=== PATIENT | male | born 1995 | race Hispanic/Latino ===

== ENCOUNTER 2018-09-27 21:24 | Emergency (ER) | payer OTHER, SELFPAY ==
[2018-09-27 22:02] LABS: #Eosinphils 0.1 thou/uL (0.0-0.7); #Neutrophils 9.4 thou/uL (1.40-6.50); %Basophils 0.3 % (0.0-1.0); %Eosinophils 1.1 % (0.0-10.0); %Lymphocytes 22.2 % (21.0-51.0); %Monocytes 7.6 % (0.0-10.0); %Neutrophils 68.8 % (42.0-75.0); Hemoglobin 16.6 g/dL (14.0-18.0); Mean Corpuscular HGB CONC 35.4 g/dL (32.0-36.0); Mean Corpuscular Hemoglobin 32.1 pg (27.0-31.0); Mean Corpuscular Volume 90.6 fL (78.0-98.0); Platelet Count 275 thou/uL (130-400); RBC Distribution Width 11.3 % (11.5-14.5); Red Blood Cell (RBC) Count 5.17 mill/uL (4.70-6.10); White Blood Cell (WBC) Count 13.6 thou/uL (4.8-10.8)
--- NOTE | 2018-09-27 22:08 | RAD ---
Portable frontal chest radiograph: 09/27/2018 COMPARISON: None HISTORY: Chest pain FINDINGS: Lungs are clear. Heart and mediastinal contours appear within normal limits. IMPRESSION: No acute findings.
[2018-09-27 22:20] LABS: ALT (SGPT) 26 U/L (8-55); AST (SGOT) 18 U/L (5-34); Albumin 4.5 g/dL (3.5-5.0); Alkaline Phosphatase 112 U/L (40-150); Anion Gap 15 mmol/L (10-20); BUN (Urea Nitrogen) 17 mg/dL (8.9-20.6); Bilirubin, Total 0.5 mg/dL (0.2-1.2); Calc. Creatinine Clearance 0 mL/min (70-130); Calcium 9.8 mg/dL (7.8-10.44); Carbon Dioxide 24 mmol/L (22-29); Chloride 105 mmol/L (98-107); Estimated GFR-MDRD Greater than 90; Globulin 3.3 g/dL (2.4-3.5); Glucose 101 mg/dL (70-105); Potassium 3.6 mmol/L (3.5-5.1); Protein, Total 7.8 g/dL (6.0-8.3); Sodium 140 mmol/L (136-145)
[2018-09-27] MEDS ORDERED: Mag-Al 1200 mg/1200 mg/30 ML UDCUP ONE (22:45)
[2018-09-27] MEDS ORDERED: Ketorolac Tromethamine 60 MG/2 ML VIAL ONE (22:45)
[2018-09-27] MEDS ORDERED: Lidocaine Viscous Sol 2% 15 ml UD Cup ONE (22:45)
--- NOTE | 2018-10-01 13:41 | EKG ---
Test Reason : Blood Pressure : / mmHG Vent. Rate : 094 BPM Atrial Rate : 094 BPM P-R Int : 136 ms QRS Dur : 088 ms QT Int : 324 ms P-R-T Axes : 044 041 034 degrees QTc Int : 405 ms Normal sinus rhythm Normal ECG Confirmed by JIM PANTOJA, MARISABEL ([id number]), film and video editor DIPIKA MONTANO ([id number]) on 10/01/2018 1:40:41 PM Referred By: Confirmed By:MARISABEL FERNANDEZ MD
== END 2018-09-27 23:25 | disposition home or self-care (01) ==
LOC: ERS 21:24
DX: R07.89 Other chest pain (principal); K21.9 Gastro-esophageal reflux disease without esophagitis; I10 Essential (primary) hypertension; F17.210 Nicotine dependence, cigarettes, uncomplicated
CPT/HCPCS: 36415; 71045; 80053; 84484; 85025; 93005; 96372; J1885

== ENCOUNTER 2018-10-20 13:12 | Emergency (ER) | payer OTHER ==
[~2018-10-20 13:12] MED LIST: ISOVUE-370 76%-LOCM 1 ML ONE
[2018-10-20 13:53] LABS: Bilirubin Negative (Negative); Blood, Urine Negative (Negative); Clarity Clear (Clear); Glucose, Urine (Dipstick) Normal (Negative); Leukocyte Negative Leu/uL (Negative); Nitrite Negative (Negative); Protein, Urine (Dipstick) 20 mg/dL (Neg-Trace)
[2018-10-20 14:10] LABS: #Eosinphils 0.1 thou/uL (0.0-0.7); #Lymphocytes 2.2 thou/uL (1.20-3.40); #Monocytes 1.1 thou/uL (0.11-0.59); #Neutrophils 8.6 thou/uL (1.40-6.50); %Basophils 0.3 % (0.0-1.0); %Lymphocytes 18.2 % (21.0-51.0); %Monocytes 8.9 % (0.0-10.0); %Neutrophils 71.7 % (42.0-75.0); Hemoglobin 15.8 g/dL (14.0-18.0); Mean Corpuscular HGB CONC 33.8 g/dL (32.0-36.0); Mean Corpuscular Hemoglobin 30.5 pg (27.0-31.0); Mean Corpuscular Volume 90.2 fL (78.0-98.0); Mean Platelet Volume 7.5 fL (7.4-10.4); Platelet Count 377 thou/uL (130-400); RBC Distribution Width 10.9 % (11.5-14.5)
[2018-10-20 14:36] LABS: ALT (SGPT) 33 U/L (8-55); AST (SGOT) 22 U/L (5-34); Albumin 4.6 g/dL (3.5-5.0); Alkaline Phosphatase 137 U/L (40-150); Anion Gap 14 mmol/L (10-20); BUN (Urea Nitrogen) 10 mg/dL (8.9-20.6); Bilirubin, Total 0.9 mg/dL (0.2-1.2); Calc. Creatinine Clearance 0 mL/min (70-130); Calcium 10.5 mg/dL (7.8-10.44); Carbon Dioxide 28 mmol/L (22-29); Chloride 99 mmol/L (98-107); Estimated GFR-MDRD Greater than 90; Glucose 98 mg/dL (70-105); Lipase 19 U/L (8-78); Potassium 3.9 mmol/L (3.5-5.1); Protein, Total 8.6 g/dL (6.0-8.3); Sodium 137 mmol/L (136-145)
[2018-10-20] MEDS ORDERED: Ketorolac Tromethamine 30 MG/ML VIAL ONE (15:00)
--- NOTE | 2018-10-20 15:00 | RAD ---
TWO VIEW CHEST: COMPARISON: Single view chest 09/27/2018. INDICATION: Thoracic back and chest pain. FINDINGS: There is no free air. Lungs are clear. Cardiac silhouette is normal in size. Osseous structures ar e intact. IMPRESSION: No acute abnormality. POS: [facility]
--- NOTE | 2018-10-20 15:46 | CT ---
ABDOMEN CT WITH CONTRAST PELVIC CT WITH CONTRAST: Date: 10/20/18 HISTORY: Hematuria, starting 2 days ago. Lower abdominal pain. FINDINGS: ABDOMEN CT: Dependent atelectatic changes. Normal heart size. No significant pericardial fluid. Visualized aorta has a normal caliber. No periaortic fat stranding. Portal vein is patent. There is a markedly distended gallbladder with mild hyperemia. Possible puncta te 1.0 mm calculus in the neck of the gallbladder. Liver, spleen, pancreas, and adrenal glands have appropriate attenuation and enhancement. No gastrohepatic, retrocrural, or periportal lymphadenopathy. Symmetric enhancement of the kidneys. Bilaterally, no obstructive uropathy. No mesenteric mass, free air, or free fluid. Limited evaluation of the alimentary canal by the lack of oral contrast. No evidence of bowel obstruc tion. Ileocecal junction is unremarkable. There are slightly enlarged lymph nodes in the right lower quadrant mesentery. Enlarged loss control representative lymph node measures 1.5 cm craniocaudal dimension. Normal caliber appendix. Scattered fecal material in a nondistended, nondilated colon. Occasional div erticulum. No diverticulitis. CT PELVIS: Prostate gland is unremarkable. No pelvic mass, lymphadenopathy, free air, or free fluid. Unremarkable urinary bladder. OSSEOUS STRUCTURES: There are no lytic or blastic lesions in the osseous structures. IMPRESSION: 1. Markedly distended gallbladder with mild gallbladder enhancement and trace amount of pericholecys tic fluid. There is a punctate 1.0 mm calculus in the neck of the gallbladder. Right upper quadrant u ltrasound is recommended. 2. Occasional diverticulum. No diverticulitis. 3. Normal caliber appendix. 4. Enlarged lymph nodes in the right lower quadrant mesentery. Correlate for mesenteric lymphadeniti s. POS: [facility]
--- NOTE | 2018-10-20 16:02 | ULT ---
GALLBLADDER ULTRASOUND: Date: 10/20/18 HISTORY: Abdominal pain. Abnormal CT 10/20/2018. FINDINGS: Pancreas obscured by bowel gas. Limited evaluation of the liver. No obvious masses. Right hepatic lobe measures 16.2 cm. Gallbladder wall thickness is 0.3 cm. Gallbladder is distended and there appears to be echogenic mate rial within the fundus of the gallbladder. Possible sludge, or debris, is suspected. There is no sign ificant pericholecystic fluid. Negative Mohamud's sign. Common bile duct diameter is 0.4 cm. Portal vein is patent with appropriate direction of flow. Right kidney has a normal cortical echotexture. No hydronephrosis. Right kidney measures 10.4 cm in m aximum dimension. IMPRESSION: Distended gallbladder with what appears to be echogenic debris in the lumen of the gallbladder. Findi ngs may represent sludge. Gallbladder wall thickness is at the upper limits of normal. There is no pe richolecystic fluid and there is a negative Mohamud's sign. However, given the overall degree of promi nence of the gallbladder best demonstrated on CT, HIDA scan is recommended. POS: [facility]
== END 2018-10-20 16:41 | disposition home or self-care (01) ==
LOC: ERS 13:12
DX: K80.50 Calculus of bile duct without cholangitis or cholecystitis without obstruction (principal); I10 Essential (primary) hypertension; Z87.891 Personal history of nicotine dependence
CPT/HCPCS: 36415; 71046; 74177; 76705; 80053; 81003; 83690; 85025; 87086; 96374; J1885

== ENCOUNTER 2018-11-17 08:32 | Outpatient (CLI) | payer OTHER ==
--- NOTE | 2018-11-17 11:20 | NM ---
Nuclear medicine hepatobiliary scan: HISTORY: Right upper quadrant pain, distended gallbladder on ultrasound FINDINGS: Patient was injected with 5.2 mCi technetium 99m mebrofenin intravenously. There is prompt uptake of the tracer by the liver with excretion into the biliary tree and emptying into the bowel. Delayed images at 75 minutes demonstrates very little residual tracer within the liver and no tracer within t he gallbladder. The patient was not able to receive morphine IV because he did not have a ride home. IMPRESSION: Nonvisualization of the gallbladder. This is certainly concerning for cholecystitis.
== END 2018-11-17 08:33 | disposition home or self-care (01) ==
LOC: NM 08:32
PROVIDERS: ATTEND Surgery
DX: R10.11 Right upper quadrant pain (principal)
CPT/HCPCS: 78227; A9537

== ENCOUNTER 2018-11-27 21:51 | Inpatient (IN) | payer OTHER ==
--- NOTE | 2018-11-27 22:27 | RAD ---
EXAM: Single view of the chest HISTORY: Chest pain COMPARISON: 09/27/2018 FINDINGS: Single view of the chest shows a normal sized cardiomediastinal silhouette. There is no nish dence of consolidation, mass, or pleural effusion. The bones are unremarkable. IMPRESSION: No evidence of acute cardiopulmonary disease
[2018-11-27 22:49] LABS: #Lymphocytes 1.2 thou/uL (1.20-3.40); #Monocytes 0.8 thou/uL (0.11-0.59); #Neutrophils 8.4 thou/uL (1.40-6.50); %Eosinophils 0.4 % (0.0-10.0); %Lymphocytes 11.6 % (21.0-51.0); %Monocytes 7.9 % (0.0-10.0); Hemoglobin 16.1 g/dL (14.0-18.0); Mean Corpuscular HGB CONC 35.2 g/dL (32.0-36.0); Mean Corpuscular Hemoglobin 31.7 pg (27.0-31.0); Mean Platelet Volume 8.2 fL (7.4-10.4); Platelet Count 260 thou/uL (130-400); RBC Distribution Width 11.6 % (11.5-14.5); Red Blood Cell (RBC) Count 5.07 mill/uL (4.70-6.10); White Blood Cell (WBC) Count 10.4 thou/uL (4.8-10.8)
[2018-11-27 22:57] LABS: ALT (SGPT) 192 U/L (8-55); AST (SGOT) 188 U/L (5-34); Albumin 4.6 g/dL (3.5-5.0); Alkaline Phosphatase 133 U/L (40-110); Anion Gap 15 mmol/L (10-20); BUN (Urea Nitrogen) 8 mg/dL (8.9-20.6); Bilirubin, Total 2.2 mg/dL (0.2-1.2); Calc. Creatinine Clearance 0 mL/min (70-130); Calcium 9.4 mg/dL (7.8-10.44); Carbon Dioxide 23 mmol/L (22-29); Chloride 105 mmol/L (98-107); Estimated GFR-MDRD Greater than 90; Globulin 3.1 g/dL (2.4-3.5); Glucose 118 mg/dL (70-105); Lipase 34 U/L (8-78); Potassium 3.5 mmol/L (3.5-5.1); Protein, Total 7.7 g/dL (6.0-8.3); Sodium 139 mmol/L (136-145)
[2018-11-27] MEDS ORDERED: Ketorolac Tromethamine 30 MG/ML VIAL ONE (22:58)
[2018-11-27] MEDS ORDERED: Morphine 4 MG/ML VIAL ONE (22:58)
[2018-11-27 23:11] LABS: Bacteria/HPF None Seen HPF (None Seen); Bilirubin 2+ (Negative); Blood, Urine Negative (Negative); Clarity Clear (Clear); Glucose, Urine (Dipstick) Normal (Negative); Leukocyte Negative Leu/uL (Negative); Mucous/LPF 1+ LPF (<2+); Nitrite Negative (Negative); Protein, Urine (Dipstick) 50 mg/dL (Neg-Trace); RBC/HPF 0-3 HPF (0-3); Squamous Epithelial 0-3 HPF (0-3); Urobilinogen 12 mg/dL (Less than 2); WBC/HPF 0-3 HPF (0-3)
[2018-11-28] MEDS ORDERED: Piperacillin/Tazobactam 3.375 GM VIAL ONE (00:26)
[2018-11-28] MEDS ORDERED: Ondansetron ODT 4 MG TAB SL PRN (03:02)
[2018-11-28] MEDS ORDERED: Ondansetron PF 4 MG/2 ML Vial IVP PRN ×2 (03:02→13:07)
[2018-11-28] MEDS ORDERED: Morphine 2 MG/ML SYRINGE SLOW IVP PRN ×2 (03:03→13:34)
[2018-11-28 03:08] VITALS: BMI 36.2
[2018-11-28] MEDS: Sodium Chloride 0.9% 1,000 ML IV SCH ×2 (03:32→11:22)
[2018-11-28] MEDS: Morphine 4 MG/ML VIAL SLOW IVP PRN ×2 (03:40→08:15)
[2018-11-28] MEDS ORDERED: cefOXitin 2 GM in Sodium Chloride 0.9% 100 ML IVPB SCH (08:30)
--- NOTE | 2018-11-28 09:14 | ULT ---
PRELIMINARY REPORT/[facility]/EMERGENCY AFTER HOURS PROCEDURE: PROCEDURE INFORMATION: Exam: US Abdomen Limited, Right Upper Quadrant Exam date and time: 11/28/2018 12:06 AM Clinical history: 23 years old, male; Other: Upper abd pain, HX of gb disease TECHNIQUE: Imaging protocol: Real-time ultrasound of the abdomen with image documentation. Examination was focus ed on the right upper quadrant. COMPARISON: US Gallbladder RUQ 10/20/2018 3:33 PM FINDINGS: Liver: No acute findings. No mass. Gallbladder: Multiple gallstones. Mild gallbladder wall thickening. Common bile duct: Measures 9.5 mm in diameter. Pancreas: Obscured by bowel gas. Right kidney: No acute findings. No mass. No hydronephrosis. IMPRESSION: Cholelithiasis with mild gallbladder wall thickening and positive Mohamud's sign concerning for acute cholecystitis. Common bile duct dilation. Thank you for allowing us to participate in the care of your patient. Dictated and Authenticated by: Rock Song MD 11/28/2018 12:43 AM Central Time ([place] & [place]) FINAL REPORT RIGHT UPPER QUADRANT ULTRASOUND: Date: 11/28/18 COMPARISON: 10/20/18. HISTORY: Evaluate for cholecystitis, right upper quadrant pain. TECHNIQUE: Multiplanar Vega scale sonographic imaging of the right upper quadrant provided. FINDINGS: The pancreas is completely obscured by bowel gas. No focal liver lesion or intrahepatic biliary dilat ation is noted. There are echogenic foci within the gallbladder lumen consistent with gallstones. There is gallbladde r sludge as well. Gallbladder wall is mildly thickened, measuring 4.0 mm in transverse dimension. The common bile duct is dilated, measuring 1.0 cm. The pasteurizing supervisor reports a positive Mohamud's sign. Right kidney measures 10.7 cm in craniocaudal dimension and demonstrates no evidence for stone, hydro nephrosis or mass. IMPRESSION: Cholelithiasis with gallbladder wall thickening and positive Mohamud's sign, consistent with acute cho lecystitis. The common bile duct is dilated, suspicious for possible nonvisualized choledocholithiasi s. Surgical consultation is advised. POS: [facility]
[2018-11-28] MEDS: Piperacillin/Tazobactam 3.375 GM in Sodium Chloride 0.9% 100 ML IVPB SCH ×5 (09:51→23:53)
[2018-11-28] MEDS ORDERED: Midazolam HCl 2 mg/2 ml Vial ONE (10:35)
[2018-11-28] MEDS ORDERED: Fentanyl 100 MCG/2 ML VIAL ONE ×2 (10:35→12:39)
[2018-11-28] MEDS ORDERED: Iothalamate Meglumine 60% 50 ML VIAL FS ONE ×2 (10:46→12:07)
[2018-11-28] MEDS ORDERED: Bupivacaine/Epinephrine 0.25% 30 ML VIAL ONE (10:46)
--- NOTE | 2018-11-28 12:02 | HP ---
CHIEF COMPLAINT: Right upper quadrant abdominal pain. HISTORY OF PRESENT ILLNESS: This is a 23-year-old male with a 1-year history of intermittent epigastric and right upper quadrant pain radiating to back, associated with nausea. He had a worsening episode last night, came to the emergency room, where he was found to have gallstones. PAST MEDICAL HISTORY: Hypertension. PAST SURGICAL HISTORY: He had some kind of mass taken off his neck. MEDICATIONS: Lisinopril 10 daily. ALLERGIES: NO KNOWN DRUG ALLERGIES. SOCIAL HISTORY: He is single. 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 He smokes 1 pack per week good. Occasional alcohol. FAMILY HISTORY: Diabetes and hypertension. PHYSICAL EXAMINATION: VITAL SIGNS: Temperature 98.6, pulse 66, and blood pressure 165/94. GENERAL: He is obese male, in no apparent distress. HEENT: No jaundice. LUNGS: Clear. HEART: Regular rate and rhythm. ABDOMEN: Soft, tender in the right upper quadrant with a positive Mohamud's sign. EXTREMITIES: Unremarkable. LABORATORY DATA: White count 10.4, H and H of 16 and 45, and platelet count 260. Electrolytes are fine. Glucose elevated at 118, T-bili of 2.2, AST of 188, ALT of 192, and alkaline phosphatase 133. IMAGING DATA: Ultrasound shows thickened gallbladder wall, cholelithiasis, and an enlarged common duct at 9.5 mm. ASSESSMENT: Acute cholecystitis with possible choledocholithiasis. PLAN: Laparoscopic cholecystectomy with cholangiogram. CONSENT: I have discussed planned procedure as well as risk of bleeding, infection, injury to bile duct, injury to bowel, need to open, he understands and gives informed consent. Job ID: [id number]
[2018-11-28] MEDS ORDERED: Indomethacin 50 MG SUPP ONE (12:23)
--- NOTE | 2018-11-28 12:26 | RAD ---
EXAM: Cholangiogram in surgery HISTORY: Acute cholecystitis COMPARISON: None FINDINGS: Limited intraoperative fluoroscopic views were taken during a cholangiogram in surgery. There is a contrast-filled structure with multiple filling defects which likely represents the patien t's gallbladder. The common bile duct is enlarged in caliber without filling defect. No leakage from the common bile duct. Contrast is not seen passing into the duodenum. No abnormality of the intrahepatic bile ducts. IMPRESSION: 1. Enlargement of the common bile duct without passage of contrast into the duodenum 2. There appears be contrast backfilling into the gallbladder with multiple gallstones.
[2018-11-28] MEDS ORDERED: Promethazine HCl 25 MG/ML VIAL IM PRN ×2 (13:07→14:19)
[2018-11-28] MEDS ORDERED: Dextrose 50% Abboject 50 ML SYRINGE SLOW IVP PRN (13:07)
[2018-11-28] MEDS ORDERED: Mag-Al 1200 mg/1200 mg/30 ML UDCUP PO PRN (13:07)
[2018-11-28] MEDS ORDERED: Calcium Carbonate 500 MG ChewTAB PO PRN (13:07)
[2018-11-28] MEDS ORDERED: Dextrose 5% in Water 1,000 ML IV PRN (13:07)
--- NOTE | 2018-11-28 14:09 | RAD ---
ERCP: 11/28/2018 COMPARISON: None HISTORY: Stone extraction FINDINGS: 3 images from ERCP provided. The first image demonstrates contrast media within the intrahe patic biliary tree and common bile duct. The distal common bile duct is not opacified. This could be related to a filling defect or incomplete opacification. The second image demonstrates a balloon i nflated within the common bile duct. The third view demonstrates minimal residual contrast media within the CBD. Correlation with real-time imaging is essential. IMPRESSION: ERCP as above.
[2018-11-28] MEDS ORDERED: Glycopyrrolate 0.2 MG/ML 5 ML SYRINGE ONE (14:18)
[2018-11-28] MEDS ORDERED: Lidocaine 1% PF 5 ML VIAL ONE (14:18)
[2018-11-28] MEDS ORDERED: Rocuronium Bromide 10 MG/ML (10ML VIAL) ONE (14:18)
[2018-11-28] MEDS ORDERED: PROPOFOL 200 MG/20 ML VIAL ONE (14:18)
[2018-11-28] MEDS ORDERED: Ondansetron PF 4 MG/2 ML Vial ONE (14:18)
[2018-11-28] MEDS ORDERED: Dexamethasone 20 MG/5 ML VIAL ONE (14:18)
[2018-11-28] MEDS ORDERED: Ondansetron HCl/PF 4 MG/2 ML Vial IVP PRN (14:19)
[2018-11-28] MEDS ORDERED: Promethazine HCl 25 MG/ML VIAL SLOW IVP PRN (14:19)
--- NOTE | 2018-11-28 15:13 | OP ---
DATE OF PROCEDURE: 11/28/2018 PREOPERATIVE DIAGNOSIS: Acute cholecystitis with elevated liver functions. PROCEDURE PERFORMED: Laparoscopic cholecystectomy with cholangiogram. INDICATIONS: The patient is a 23-year-old male, who has prior had several month history of symptomatic cholelithiasis, who had a much worse about over the last 24 hours, came to the emergency room. Ultrasound showed some dilatation of the common duct. His T bilirubin was like 1.5. We discussed preoperative ERCP, but decided to proceed with cholecystectomy. FINDINGS: Very inflamed, large, dilated gallbladder, filled with multiple small stones; very dilated cystic duct; dilated common bile duct; obstructed distal common bile duct. DESCRIPTION OF PROCEDURE: After informed consent was obtained, the patient was taken to the operating room and given general endotracheal anesthesia and placed in the supine position. Abdomen was prepped and draped in the usual fashion. Local anesthesia infiltrated subcutaneously and deep and a subumbilical incision was performed. Subcu divided sharply. The fascia was grasped with 2 stay sutures of 0 Vicryl, placed in each side of midline. Midline incised. Digital palpation revealed no local adhesions. A blunt 12-mm trocar inserted. Pneumoperitoneum was created to a pressure of 15 mmHg. A 0-degree laparoscope inserted under direct vision. Three 5-mm ports were placed subcostally. The gallbladder was very distended, could not grasp it. An aspirating needle was inserted and 120 mL of thick bile removed from the gallbladder. This was sent for culture and sensitivity and Gram stain. The gallbladder was grasped and advanced superiorly. The peritoneum was dissected distally to expose a very large dilated cystic duct as well as cystic artery. The cystic artery was triply ligated with hemoclips and divided. The gallbladder was too large for clip. An incision was made in the cystic duct and a cholangiocatheter inserted. An intraoperative cholangiogram was performed utilizing fluoroscopy. The proximal hepatic ducts were dilated. The common bile duct was massively dilated and there was no flow into the duodenum. In this scenario, we felt that ERCP was going to be necessary. The catheter removed. The cystic duct was divided. The distal cystic duct was ligated with two 0 PDS Endoloop. The gallbladder removed from the fossa utilizing electrocautery. There was spillage of gallstones and the spilled gallstones in the gallbladder placed in an endosac and then removed from the abdomen in the endosac through the umbilical port. Hemostasis was assured. The area was thoroughly irrigated. Again, hemostasis was assured. A 19-Indonesian drain was placed in the subhepatic space and brought out through the lateral-most incision. Trocars and retractors were removed. The fascia was closed with interrupted 0 Vicryl sutures. Subcu thoroughly irrigated in the umbilical region and the skin closed with interrupted 4-0 Rapide. Dermabond applied. The patient tolerated the procedure well and was then transferred to the endoscopy suite for ERCP. Job ID: [id number]
--- NOTE | 2018-11-28 17:00 | CON ---
DATE OF CONSULTATION: REASON FOR CONSULTATION: Intraoperative consult for ERCP for suspected choledocholithiasis, nondraining common bile duct on cholangiogram. HISTORY OF PRESENT ILLNESS: He was intubated. He had a cholecystectomy this morning and had an IOC, that was positive. Dr. Caban had talked to the patient prior to the procedure, possibly undergoing an ERCP if IOCs are positive with the risks and benefits of the procedure. He is now intubated and sedated. The patient had consented to that procedure prior to going under anesthesia for his gallbladder. PAST MEDICAL HISTORY: Hypertension. PAST SURGICAL HISTORY: 1. Mass taken off his neck. 2. Laparoscopic cholecystectomy today. MEDICATIONS: At home, lisinopril. Medications here, reviewed and include; 1. Lovenox. 2. Famotidine. 3. Morphine. 4. Zosyn. ALLERGIES: NONE KNOWN. SOCIAL HISTORY: He occasionally drinks alcohol. He smokes one pack per day. FAMILY HISTORY: Diabetes and hypertension. PHYSICAL EXAMINATION: VITAL SIGNS: He has been afebrile since admission, temperature is 98, pulse 67, blood pressure 160/102. GENERAL: He is intubated he is sedated, his breathing tube is through oral airway. ABDOMEN: Soft and nontender. There is no palpable hepatosplenomegaly. LABORATORY DATA: White count was 10 yesterday, hemoglobin was 16, and platelet count was 260. Sodium was 139, potassium 3.5, BUN and creatinine are 8 and 0.8. AST and ALT were 188, 182, alkaline phosphatase 133, and bilirubin was 2.2. Labs were repeated today. Lipase 34. IMAGING STUDIES: Ultrasound with cholelithiasis, gallbladder wall thickening, 9.5 mm common bile duct. IOC showed nondrainage of common bile duct. ASSESSMENT: Suspected choledocholithiasis. PLAN: ERCP. Consent was obtained prior to going under anesthetic. Job ID: [id number]
[2018-11-28] MEDS: D5 1/2 NS w/20 mEq KCL 1,000 ML IV SCH ×2 (17:42→21:03)
[2018-11-28] MEDS: Ketorolac Tromethamine 30 MG/ML VIAL IVP SCH ×2 (17:42→23:54)
[2018-11-28] MEDS: Famotidine/PF 20 mg/2ml Vial SLOW IVP SCH (20:06)
[2018-11-28] MEDS ORDERED: FLU VACC QS2019-20(6MOS UP)/PF 60 MCG/0.5 ML SYRINGE IM ONE (21:00)
[2018-11-28] MEDS: Famotidine 20 MG TAB PO SCH (21:01)
[2018-11-29] MEDS: Ketorolac Tromethamine 30 MG/ML VIAL IVP SCH ×3 (05:12→18:05)
[2018-11-29] MEDS: Piperacillin/Tazobactam 3.375 GM in Sodium Chloride 0.9% 100 ML IVPB SCH ×3 (05:13→18:07)
[2018-11-29] MEDS: Morphine 4 MG/ML VIAL SLOW IVP PRN (05:17)
[2018-11-29 06:01] LABS: #Lymphocytes 1.6 thou/uL (1.20-3.40); #Monocytes 1.2 thou/uL (0.11-0.59); #Neutrophils 10.6 thou/uL (1.40-6.50); %Basophils 0.2 % (0.0-1.0); %Eosinophils 0.3 % (0.0-10.0); %Lymphocytes 11.6 % (21.0-51.0); %Monocytes 8.6 % (0.0-10.0); %Neutrophils 79.3 % (42.0-75.0); Hemoglobin 14.9 g/dL (14.0-18.0); Mean Corpuscular HGB CONC 34.8 g/dL (32.0-36.0); Mean Corpuscular Hemoglobin 31.7 pg (27.0-31.0); Mean Corpuscular Volume 91.1 fL (78.0-98.0); Mean Platelet Volume 8.3 fL (7.4-10.4); Platelet Count 229 thou/uL (130-400); RBC Distribution Width 11.5 % (11.5-14.5); White Blood Cell (WBC) Count 13.4 thou/uL (4.8-10.8)
[2018-11-29 06:07] LABS: ALT (SGPT) 266 U/L (8-55); AST (SGOT) 159 U/L (5-34); Albumin 3.8 g/dL (3.5-5.0); Alkaline Phosphatase 188 U/L (40-110); Anion Gap 15 mmol/L (10-20); BUN (Urea Nitrogen) 7 mg/dL (8.9-20.6); Bilirubin, Total 4.9 mg/dL (0.2-1.2); Calc. Creatinine Clearance 229 mL/min (70-130); Calcium 8.9 mg/dL (7.8-10.44); Carbon Dioxide 24 mmol/L (22-29); Chloride 105 mmol/L (98-107); Estimated GFR-MDRD Greater than 90; Globulin 3.1 g/dL (2.4-3.5); Glucose 111 mg/dL (70-105); Lipase 52 U/L (8-78); Potassium 3.5 mmol/L (3.5-5.1); Protein, Total 6.9 g/dL (6.0-8.3); Sodium 140 mmol/L (136-145)
[2018-11-29] MEDS: D5 1/2 NS w/20 mEq KCL 1,000 ML IV SCH ×2 (06:37→12:37)
--- NOTE | 2018-11-29 07:45 | PDOC.GSPN ---
Surgery Progress Note: Subj - Subjective Patient reports: no new complaints, pain well controlled, tolerating liquids well, no bowel movement, still having pain Narrative: pt slept well through the night. has no questions. Surgery Progress Note: Obj - Vital signs Vital signs: Vital Signs - Most Recent Temp Pulse Resp BP Pulse Ox 99.0 F 73 18 152/97 H 96 11/29/18 04:40 11/29/18 04:40 11/29/18 04:40 11/29/18 04:40 11/29/18 04:40 - Physical Exam General: no distress, well nourished, moderate pain, obese Cardiovascular: regular rate and rhythm Respiratory: clear to auscultation Abdomen: appropriately tender Hernia: none Integumentary: other (incisions are healing well with mild erythema around them) Psychiatric: oriented to time, oriented to person, oriented to place Wound: dressing clean,dry,intact, healing well, erythma/edema (mild around incision) Surgery Progress Note: Results - Labs Result Diagrams: 11/29/18 05:08 11/29/18 05:08 Lab results: Laboratory Results - last 24 hr 11/29/18 11/29/18 05:08 05:08 WBC 13.4 H RBC 4.70 Hgb 14.9 Hct 42.8 MCV 91.1 MCH 31.7 H MCHC 34.8 RDW 11.5 Plt Count 229 MPV 8.3 Neutrophils % 79.3 H Lymphocytes % 11.6 L Monocytes % 8.6 Eosinophils % 0.3 Basophils % 0.2 Neutrophils # 10.6 H Lymphocytes # 1.6 Monocytes # 1.2 H Eosinophils # 0.0 Basophils # 0.0 Sodium 140 Potassium 3.5 Chloride 105 Carbon Dioxide 24 Anion Gap 15 BUN 7 L Creatinine 0.83 Estimated GFR (MDRD) Greater than 90 Glucose 111 H Calcium 8.9 Total Bilirubin 4.9 H AST 159 H ALT 266 H Alkaline Phosphatase 188 H Serum Total Protein 6.9 Albumin 3.8 Globulin 3.1 Albumin/Globulin Ratio 1.2 Lipase 52 Surgery Progress Note: A/P - Problem (1) S/P laparoscopic cholecystectomy Current Visit: Yes Code(s): Z90.49 - ACQUIRED ABSENCE OF OTHER SPECIFIED PARTS OF DIGESTIVE TRACT Status: Acute (2) Status post endoscopic retrograde cholangiopancreatography Current Visit: Yes Code(s): Z98.890 - OTHER SPECIFIED POSTPROCEDURAL STATES Status: Acute (3) Generalized abdominal pain following cholangiogram Current Visit: Yes Code(s): G89.18 - OTHER ACUTE POSTPROCEDURAL PAIN; R10.84 - GENERALIZED ABDOMINAL PAIN Status: Acute - Plan Plan: continue pain medications continue abx advance diet as tolerated observe for BM and pain reduction
--- NOTE | 2018-11-29 08:22 | OP ---
DATE OF PROCEDURE: 11/28/2018 PREPROCEDURE DIAGNOSES: Positive IOC, laparoscopic cholecystectomy. POSTOPERATIVE DIAGNOSIS: Dilated common bile duct to 12 to 15 mm with debris in the distal duct. PROCEDURES PERFORMED: Endoscopic retrograde cholangiopancreatography, sphincterotomy, removal of common bile duct stones. ANESTHESIA: General endotracheal anesthesia. PROCEDURE IN DETAIL: The patient consented for ERCP by General Surgeon, Dr. Estuardo Caban prior to his laparoscopic cholecystectomy with a positive IOC, he was brought straight from the OR to endoscopy to facilitate evaluating that, performing the ERCP under one anesthetic, decrease risk for the patient with 2 anesthetics. He is gently moved to the fluoroscopy table and placed in a prone position. A athletic scout film was obtained, showing cholecystectomy clips in the right upper quadrant. The side-viewing duodenoscope was advanced to the esophagus, stomach, into the second and third portions of the duodenum. The ampulla was brought into view. There was pre-cannulation of the common bile duct, the guidewire was advanced into the proximal intrahepatic ducts, the cholangiogram revealed questionable filling defects in the lower common bile duct and also dilated mid common bile duct and hepatic duct. Sphincterotomy was performed over a guidewire, and really small stones and debris duct. The duct was swept, multiple small stones and debris were noted to come through. We swept the duct several times with the balloon at 15 mm with no further drainage of materials. There was some narrowing of common bile duct to the level of the cystic duct stump. There was no evidence of obstruction here. We did advance a basket up into the common bile duct to look for further small stone and debris and none were seen. The duct was swept one more time and then the cholangiogram showed good drainage both endoscopically and radiographically. The scope was removed. The patient tolerated the procedure well. There were no complications. Job ID: [id number]
[2018-11-29] MEDS: Famotidine 20 MG TAB PO SCH ×2 (08:47→19:16)
[2018-11-29] MEDS: HYDROcodone/Acetaminophen 10/325 mg Tablet PO PRN ×2 (08:48→19:16)
[2018-11-29] MEDS: Enoxaparin Sodium 40 MG/0.4 ML SYRINGE SC SCH (08:49)
[2018-11-29] MEDS: Famotidine/PF 20 mg/2ml Vial SLOW IVP SCH ×2 (08:53→19:28)
--- NOTE | 2018-11-29 09:50 | PRG ---
DATE OF SERVICE: 11/29/2018 SUBJECTIVE: The patient is feeling better, less pain, rare nausea. He is tolerating clear liquids. He has not been ambulating much. OBJECTIVE: VITAL SIGNS: His temperature is 99, pulse 73, blood pressure 152/77. GENERAL: He has some mild jaundice. His incisions are healing well. There is no evidence of infection. The DILLON put out 110 mL of serosanguineous fluid. LABORATORY DATA: His bilirubin is 4.9, AST of 159, ALT of 266, alkaline phosphatase of 188. His white count is 13, H and H of 14 and 42, platelet count 229. The culture shows lot of white cells, no organisms. ASSESSMENT: Status post cholecystectomy and endoscopic retrograde cholangiopancreatography with stone extraction for acute cholecystitis with choledocholithiasis. PLAN: Plan is to advance diet to full liquids and then as tolerated. Get him ambulating. Home soon. We will need to repeat his lab as well. Job ID: [id number]
[2018-11-30] MEDS: D5 1/2 NS w/20 mEq KCL 1,000 ML IV SCH ×4 (00:14→19:04)
[2018-11-30] MEDS: Ketorolac Tromethamine 30 MG/ML VIAL IVP SCH ×5 (00:15→23:42)
[2018-11-30] MEDS: Piperacillin/Tazobactam 3.375 GM in Sodium Chloride 0.9% 100 ML IVPB SCH ×5 (00:15→23:42)
--- NOTE | 2018-11-30 02:39 | PRG ---
DATE OF SERVICE: 11/29/2018 SUBJECTIVE: Mr. Billings is tolerating some clear liquids. He still has some significant abdominal pain, he states when he moves or coughs. OBJECTIVE: VITAL SIGNS: Temperature 98, pulse 80, and blood pressure 152/92. GENERAL: He is comfortable in bed. Family is at the bedside. LUNGS: Clear. ABDOMEN: Moderately tender in the right upper quadrant serosanguineous drainage so far today, he was voiding. LABORATORY DATA: White count 13.4, hemoglobin 14.9, and platelet count 229. Sodium 140, potassium 3.4, BUN and creatinine 11 and 0.83. Bilirubin is up to 4.9. AST and ALT of 159 and 266, alk phos 188, lipase 32. ASSESSMENT: 1. Choledocholithiasis status post endoscopic retrograde cholangiopancreatography with removal of stones. 2. Status post cholecystectomy for acute cholecystitis. DILLON drain in place. Continue antibiotics. Continue IV fluids. Continue to advance diet slowly. 3. Monitor LFTs. I suspect these will continue to trend downwards. Job ID: [id number]
[2018-11-30] MEDS: HYDROcodone/Acetaminophen 10/325 mg Tablet PO PRN ×4 (04:09→23:40)
[2018-11-30 06:01] LABS: #Eosinphils 0.1 thou/uL (0.0-0.7); #Lymphocytes 1.9 thou/uL (1.20-3.40); #Neutrophils 8.4 thou/uL (1.40-6.50); %Basophils 0.4 % (0.0-1.0); %Eosinophils 1.1 % (0.0-10.0); %Lymphocytes 16.2 % (21.0-51.0); %Monocytes 8.4 % (0.0-10.0); %Neutrophils 73.9 % (42.0-75.0); Hemoglobin 14.8 g/dL (14.0-18.0); Mean Corpuscular HGB CONC 34.4 g/dL (32.0-36.0); Mean Corpuscular Hemoglobin 31.6 pg (27.0-31.0); Mean Platelet Volume 8.3 fL (7.4-10.4); Platelet Count 211 thou/uL (130-400); RBC Distribution Width 11.8 % (11.5-14.5); Red Blood Cell (RBC) Count 4.69 mill/uL (4.70-6.10); White Blood Cell (WBC) Count 11.4 thou/uL (4.8-10.8)
[2018-11-30 06:23] LABS: ALT (SGPT) 201 U/L (8-55); AST (SGOT) 74 U/L (5-34); Albumin 3.8 g/dL (3.5-5.0); Alkaline Phosphatase 188 U/L (40-110); Bilirubin, Direct 0.8 mg/dL (0.1-0.3); Bilirubin, Total 1.4 mg/dL (0.2-1.2); Protein, Total 6.9 g/dL (6.0-8.3)
[2018-11-30] MEDS: Enoxaparin Sodium 40 MG/0.4 ML SYRINGE SC SCH (08:25)
[2018-11-30] MEDS: Famotidine 20 MG TAB PO SCH ×2 (08:25→21:05)
[2018-11-30] MEDS: Famotidine/PF 20 mg/2ml Vial SLOW IVP SCH ×2 (08:53→18:58)
--- NOTE | 2018-11-30 10:32 | DIS ---
DATE OF ADMISSION: 11/28/2018 DATE OF DISCHARGE: 11/30/2018 DISCHARGE DIAGNOSES: 1. Acute cholecystitis. 2. Choledocholithiasis. PROCEDURES DURING ADMISSION: Laparoscopic cholecystectomy with cholangiogram. ERCP with sphincterotomy and stone extraction. HOSPITAL COURSE: The patient was admitted, taken to the operating room, where he underwent a laparoscopic cholecystectomy with cholangiogram. He was found to have common bile duct stones. He immediately was transferred postoperatively to the endoscopy suite where he underwent ERCP and stone extraction. Postoperatively, he is doing well. His pain is minimal. He is tolerating a regular diet. He is discharged home afebrile on hydrocodone and Zofran. He will follow up with me in 2 weeks. Job ID: [id number]
--- NOTE | 2018-11-30 14:28 | PRG ---
DATE OF SERVICE: 11/30/2018 SUBJECTIVE: Mr. Billings is feeling much better. He has no fever. He is eating better. OBJECTIVE: VITAL SIGNS: Temperature is 98, T-max 98.9, pulse 75, and blood pressure 158/94. LUNGS: Clear. ABDOMEN: Soft and nontender. There is no rebound. There is no guarding. LABORATORY DATA: White count 11.4, hemoglobin is 14.8, platelet count is 211. Bilirubin is down to 1.4. AST and ALT are 74 and 201, alkaline phosphatase 180, these are all dropping. ASSESSMENT: 1. Choledocholithiasis, status post endoscopic retrograde cholangiopancreatography and removal of common bile duct stones. 2. Cholecystitis, status post cholecystectomy. 3. Mildly elevated liver enzymes, likely related to choledocholithiasis, slowly improving. RECOMMENDATIONS: I think the patient can go home as planned. It would be reasonable for him to get some LFTs and follow up with Dr. Caban in 2 weeks, made to return to normal. They have not to be happy to see him back in followup. If they have, then we can go on his way. Job ID: [id number]
[2018-11-30] MEDS: hydrALAZINE 20 MG/ML VIAL SLOW IVP PRN (18:58)
[2018-11-30] MEDS: Morphine 4 MG/ML VIAL SLOW IVP PRN ×2 (19:42→21:28)
[2018-11-30] MEDS ORDERED: Lidocaine 2% Viscous Solution 10 ML, Aluminum & Magnesium Hydroxide 30 ML SSW SCH (20:30)
[2018-11-30] MEDS ORDERED: Simethicone Chewable 80 MG TAB PO SCH (20:30)
--- NOTE | 2018-11-30 20:53 | RAD ---
PORTABLE CHEST: 11/30/18 HISTORY: Chest pain. COMPARISON: 11/27/18. FINDINGS/IMPRESSION: Borderline cardiomegaly. Mild vascular engorgement. Patchy atelectasis or infiltrate in the left lung base. Mild elevated right hemidiaphragm. Small effusions cannot be excluded. POS: [facility]
[2018-11-30 21:34] LABS: #Eosinphils 0.1 thou/uL (0.0-0.7); #Monocytes 0.8 thou/uL (0.11-0.59); #Neutrophils 7.3 thou/uL (1.40-6.50); %Basophils 0.3 % (0.0-1.0); %Eosinophils 0.7 % (0.0-10.0); %Lymphocytes 11.3 % (21.0-51.0); %Monocytes 8.2 % (0.0-10.0); %Neutrophils 79.5 % (42.0-75.0); Hemoglobin 15.2 g/dL (14.0-18.0); Mean Corpuscular HGB CONC 32.6 g/dL (32.0-36.0); Mean Corpuscular Hemoglobin 29.9 pg (27.0-31.0); Mean Corpuscular Volume 91.7 fL (78.0-98.0); Mean Platelet Volume 8.2 fL (7.4-10.4); Platelet Count 246 thou/uL (130-400); RBC Distribution Width 11.7 % (11.5-14.5); Red Blood Cell (RBC) Count 5.08 mill/uL (4.70-6.10); White Blood Cell (WBC) Count 9.2 thou/uL (4.8-10.8)
[2018-11-30 21:50] LABS: Lactic Acid 0.9 mmol/L (0.5-2.2)
[2018-11-30 21:53] LABS: ALT (SGPT) 196 U/L (8-55); AST (SGOT) 74 U/L (5-34); Albumin 4.2 g/dL (3.5-5.0); Alkaline Phosphatase 261 U/L (40-110); Bilirubin, Direct 2.5 mg/dL (0.1-0.3); Bilirubin, Total 3.3 mg/dL (0.2-1.2); Lipase 19 U/L (8-78); Protein, Total 7.7 g/dL (6.0-8.3)
[2018-11-30 21:55] LABS: Anion Gap 14 mmol/L (10-20); BUN (Urea Nitrogen) 5 mg/dL (8.9-20.6); Calc. Creatinine Clearance 268 mL/min (70-130); Calcium 9.7 mg/dL (7.8-10.44); Carbon Dioxide 26 mmol/L (22-29); Chloride 102 mmol/L (98-107); Estimated GFR-MDRD Greater than 90; Glucose 108 mg/dL (70-105); Potassium 3.7 mmol/L (3.5-5.1); Sodium 138 mmol/L (136-145)
[2018-12-01] MEDS: hydrALAZINE 20 MG/ML VIAL SLOW IVP PRN ×2 (00:18→23:12)
[2018-12-01] MEDS: D5 1/2 NS w/20 mEq KCL 1,000 ML IV SCH ×3 (01:29→17:52)
--- NOTE | 2018-12-01 01:55 | CON ---
DATE OF CONSULTATION: 11/30/2018 This is CHERYL Green dictating a report for Jose De Jesus Britt MD. TIME OF ASSESSMENT: 1999. PRIMARY CARE PHYSICIAN: [facility]. REASON FOR CONSULTATION: Medical management/chest pain. HISTORY OF PRESENT ILLNESS: Mr. Billings is a 23-year-old gentleman who is status post a laparoscopic cholecystectomy done on 11/28/2018 who is found to have a dilated common bile duct of 12 to15 mm with debris in the distal duct. He had an ERCP with sphincterotomy and removal of common bile duct stones on 11/28/2018. He was seen by Dr. Caban earlier today. He was found to have minimal postoperative discomfort, tolerating a regular diet, cleared for discharge home with followup as an outpatient with Dr. Caban. The patient prior to being discharged developed right upper quadrant pain radiated across his abdomen and symptoms of chest pain. He states this started around 7 p.m. and has been intermittent since then. He was given morphine by the nurse and it did help to control his discomfort momentarily. An EKG was done at bedside and showed normal sinus rhythm with no ST changes or T-wave abnormalities. The patient states he feels some increased discomfort when he takes a deep breath. States the pain comes and goes and seems to be a 9/10 in severity when it does occur. The worst pain is in the right upper quadrant. He denies having any nausea or vomiting. Does not feel lightheaded or dizzy. He has been moving his bowels and passing flatus. Denies any abdominal distention. All other review of systems negative. PAST MEDICAL HISTORY: 1. Hypertension. 2. Obesity. PAST SURGICAL HISTORY: 1. Laparoscopic cholecystectomy. 2. ERCP with sphincterotomy and common bile duct stone removal. 3. He had a mass excised from his neck. SOCIAL HISTORY: He is fully independent. Reports smoking one pack per week and occasionally drinks alcohol. Denies any illicit drug use. FAMILY HISTORY: Notable for diabetes and hypertension. ALLERGIES: NO KNOWN DRUG ALLERGIES. CURRENT MEDICATIONS: Lisinopril mg p.o. daily. PHYSICAL EXAMINATION: GENERAL: The patient appears to be in discomfort. He is lying in bed, but in obvious pain. No respiratory distress. VITAL SIGNS: Temperature 97.6, pulse 101, respirations 24, O2 saturation 96% on 2 L by nasal cannula, and blood pressure 169/109. HEENT: Normocephalic and atraumatic. Pupils are equal, round, and reactive to light. Sclerae without icterus. Oropharynx is clear. Oral mucosa appears dry. NECK: Supple. LUNGS: Clear to auscultation bilaterally without any wheezes, rales, or rhonchi. CARDIAC: Regular rate and rhythm. No chest wall tenderness. ABDOMEN: Notable for discomfort with very minimal palpation of the right upper quadrant and epigastric region. No tense distention. EXTREMITIES: No lower leg swelling or edema. LABORATORY DATA: Done earlier in the morning notable for white count of 11.4, hemoglobin 14.8, hematocrit 43.1, platelets 211, and neutrophils 73.9. Total bilirubin 1.4, direct bilirubin 0.8, AST 24, ALT 201, alkaline phosphatase 188, protein 6.9, albumin 3.8. Urinalysis done on 11/27/2018, notable for 50 protein, trace ketones, 2+ bilirubin, and 12 urobilinogen. Otherwise negative. IMPRESSION AND PLAN: Mr. Billings is a 23-year-old gentleman who has been referred for management of the following. 1. Acute chest pain. He does report sternal chest discomfort, but states the pain starts in the right upper quadrant radiating across to the epigastric region and up into his chest. He states that has been intermittent and he did respond well to morphine given. Earlier today, he was feeling completely fine and ambulating without difficulty according to his mother. Given recent surgery, we will obtain an upright chest x-ray. We will repeat laboratory studies including LFTs and lipase. EKG done at bedside was unremarkable. We will trend troponins. We will continue morphine for pain. We will add a BNP to the labs as well. 2. Abdominal pain. Patient notably tender on exam in the right upper quadrant with minimal palpation. Again, we will check LFTs including lipase. Lactic acid will be checked as well. RN to notify Dr. Caban in the event that he might want CT imaging of the abdomen and pelvis. 3. Hypertension. Elevated likely due to uncontrolled pain. We will continue to monitor and we will give another dose of morphine which did help to alleviate his pain earlier. 4. The patient does have p.r.n. hydralazine ordered. 5. We will resume home medication. 6. Gastrointestinal prophylaxis. Famotidine. 7. Deep venous thrombosis prophylaxis. Mechanical SCDs. 8. Code status. Full. Patient's surrogate decision maker is his mother, Marie Marino. Patient's case was discussed with Dr. Britt, who agrees with the plan of care as described above. Job ID: [id number]
[2018-12-01] MEDS: Ketorolac Tromethamine 30 MG/ML VIAL IVP SCH ×4 (05:34→23:12)
[2018-12-01] MEDS: HYDROcodone/Acetaminophen 10/325 mg Tablet PO PRN ×2 (05:34→17:11)
[2018-12-01] MEDS: Piperacillin/Tazobactam 3.375 GM in Sodium Chloride 0.9% 100 ML IVPB SCH ×4 (05:35→23:11)
[2018-12-01 05:51] LABS: #Eosinphils 0.1 thou/uL (0.0-0.7); #Lymphocytes 1.6 thou/uL (1.20-3.40); #Neutrophils 6.1 thou/uL (1.40-6.50); %Basophils 0.3 % (0.0-1.0); %Lymphocytes 18.6 % (21.0-51.0); %Monocytes 11.7 % (0.0-10.0); %Neutrophils 68.4 % (42.0-75.0); Hemoglobin 14.6 g/dL (14.0-18.0); Mean Corpuscular HGB CONC 32.9 g/dL (32.0-36.0); Mean Corpuscular Hemoglobin 30.3 pg (27.0-31.0); Mean Corpuscular Volume 92.1 fL (78.0-98.0); Mean Platelet Volume 8.1 fL (7.4-10.4); Platelet Count 249 thou/uL (130-400); RBC Distribution Width 11.9 % (11.5-14.5); Red Blood Cell (RBC) Count 4.81 mill/uL (4.70-6.10); White Blood Cell (WBC) Count 8.9 thou/uL (4.8-10.8)
[2018-12-01 06:09] LABS: ALT (SGPT) 186 U/L (8-55); AST (SGOT) 76 U/L (5-34); Albumin 4.1 g/dL (3.5-5.0); Alkaline Phosphatase 262 U/L (40-110); Bilirubin, Direct 3.1 mg/dL (0.1-0.3); Bilirubin, Total 4.3 mg/dL (0.2-1.2); Protein, Total 6.8 g/dL (6.0-8.3)
[2018-12-01] MEDS: Famotidine/PF 20 mg/2ml Vial SLOW IVP SCH ×2 (08:37→21:08)
[2018-12-01] MEDS: Famotidine 20 MG TAB PO SCH ×2 (08:38→21:09)
[2018-12-01] MEDS: Aspirin 325 mg Enteric Coated Tablet PO SCH (08:39)
[2018-12-01] MEDS: Enoxaparin Sodium 40 MG/0.4 ML SYRINGE SC SCH (09:16)
--- NOTE | 2018-12-01 09:30 | PRG ---
DATE OF SERVICE: 12/01/2018 SUBJECTIVE: The patient was discharged yesterday and waiting for his ride when he developed severe chest, right upper quadrant pain, worse pain he has ever had, associated with nausea. The medical service worked him up for heart and it was fine. His LFTs bumped up. His bilirubin went back up to like 4.5. He says this morning he is feeling a lot better. The pain is pretty well gone. OBJECTIVE: VITAL SIGNS: Temperature is 98.8, pulse 95, blood pressure 153/93. GENERAL: He is awake and alert. The incisions are healing well. There is no evidence of infection. ABDOMEN: Soft, obese, nontender. LABORATORY DATA: His white count is 8.9, H and H of 14 and 44, platelet count 249. His total bilirubin was 4.3, direct bilirubin 3.1, AST of 76, ALT of 186, and his alkaline phosphatase of 262. His lipase is fine at 19. ASSESSMENT: Probably passed a stone from the cystic duct remnant. PLAN: I got to consult him to Dr. Oro. I plan on repeating his LFTs at noon. If they are dropping, I think that without symptoms, he may be able to go home, but I will leave that up to Dr. Oro. Job ID: [id number]
[2018-12-01 12:56] LABS: ALT (SGPT) 176 U/L (8-55); AST (SGOT) 77 U/L (5-34); Alkaline Phosphatase 265 U/L (40-110); Bilirubin, Direct 3.5 mg/dL (0.1-0.3); Bilirubin, Total 4.8 mg/dL (0.2-1.2); Protein, Total 7.1 g/dL (6.0-8.3)
--- NOTE | 2018-12-01 13:08 | PRG ---
DATE OF SERVICE: 12/01/2018 SUBJECTIVE: Mr. Billings had recurrent pain last night and cardiac evaluation was negative. They repeated his LFTs and about 2100 hours, his bilirubin had jumped back up to 3.3 from 1.4. AST and ALT about the same at 74 and 196 from 74 and 201 earlier in the day. His alkaline phosphatase was 261, it had been 188 earlier in the day. Presently, the patient states he feels better. At 5 o'clock this morning, his bilirubin is up to 4.3. AST and ALT were 76 and 186. Alkaline phosphatase was 262, same as yesterday. His lipase was checked last night, it was normal and today it was not. OBJECTIVE: VITAL SIGNS: Temperature is 98. He has been afebrile. Pulse 78, and blood pressure 157/91. ABDOMEN: Soft. He has some slight voluntary guarding in lower abdomen and upper abdomen. He has no rebound. He has no distention. GENERAL: He is comfortable. Multiple family members in the room. LABORATORY DATA: Hemoglobin is 14.6, white count 8.9, and platelet count 249. ASSESSMENT: Recurrent pain consistent with biliary colic last night. Cardiac workup was negative. He had a slight bump in his bilirubin. Other LFTs remained the same. Differential diagnosis including small amount of hemobilia, which is less likely as he has had no melena and his hemoglobin stable. Edema post sphincterotomy or passage of one of the stones from the cystic duct stump. RECOMMENDATIONS: Repeat liver function tests this afternoon. If his enzymes are coming down, I would get an MRCP to further evaluate the cystic duct stump and common duct and also we will evaluate, make sure there is no evidence of bile leak or anything else. If his liver enzymes can go up, may just need a repeat ERCP. We will keep him n.p.o. for now. We discussed this plan with the patient and Dr. Caban. Job ID: [id number]
--- NOTE | 2018-12-01 15:40 | PDOC.HOSPP ---
- Subjective Encounter Date: 12/01/18 Encounter Time: 15:39 Subjective: Doing okay, LFT stable - Objective Vital Signs & Weight: Vital Signs (12 hours) Temp Pulse Resp BP Pulse Ox 12/01/18 11:25 98.5 F 76 18 158/97 H 95 12/01/18 07:57 98.0 F 78 16 157/91 H 96 12/01/18 04:25 98.8 F 95 16 153/93 H 95 Weight Weight 260 lb I&O: 11/30/18 12/01/18 12/02/18 06:59 06:59 06:59 Output Total 70 Balance -70 Result Diagrams: 12/01/18 05:19 11/30/18 21:21 Hospitalist ROS - Medication Medications: Active Medications Generic Name Dose Route Start Last Admin Trade Name Freq PRN Reason Stop Dose Admin Hydrocodone Bitart/Acetaminophen 1 tab 11/28/18 13:07 12/01/18 05:34 [place] 10/325 PO 1 tab Q6H PRN Administration Moderate Pain (4-6) Hydrocodone Bitart/Acetaminophen 2 tab 11/28/18 13:07 11/30/18 23:40 [place] 10/325 PO 2 tab Q6H PRN Administration Severe Pain (7-10) Al Hydroxide/Mg Hydroxide 15 ml 11/28/18 13:07 11/30/18 20:05 Maalox PO 15 ml Q6H PRN Administration Dyspepsia Aspirin 325 mg 12/01/18 09:00 12/01/18 08:39 Ecotrin PO 325 mg DAILY MARTÍN Administration Calcium Carbonate 1,000 mg 11/28/18 13:07 11/30/18 20:05 Tums PO 1,000 mg Q4H PRN Administration Dyspepsia Enoxaparin Sodium 40 mg 11/29/18 09:00 12/01/18 09:16 Lovenox SC 40 mg 0900 MARTÍN Administration Famotidine 20 mg 11/28/18 21:00 12/01/18 08:38 Pepcid PO Not Given Q12HR MARTÍN Famotidine 20 mg 11/28/18 21:00 12/01/18 08:37 Pepcid SLOW IVP 20 mg Q12HR MARTÍN Administration Hydralazine HCl 10 mg 11/28/18 13:07 12/01/18 00:18 Apresoline SLOW IVP 10 mg Q4H PRN Administration SBP > 170 or DBP > 100 Potassium Chloride/Dextrose/Sod Cl 1,000 mls @ 120 mls/hr 11/28/18 13:15 08:35 D5 1/2 Ns W/20 Meq Kcl IV Not Given .Q8H20M MARTÍN Piperacillin Sod/Tazobactam 100 mls @ 200 mls/hr 11/28/18 18:00 12/01/18 12: 29 Sod 3.375 gm/ Sodium Chloride IVPB 100 mls Q6HR MARTÍN Administration Ketorolac Tromethamine 30 mg 11/28/18 18:00 12/01/18 12:30 Toradol IVP 12/03/18 18:01 30 mg Q6HR MARTÍN Administration Morphine Sulfate 4 mg 11/28/18 13:07 11/30/18 21:28 Morphine SLOW IVP 4 mg Q2H PRN Administration Moderate Pain (4-6) Sodium Chloride 10 ml 11/28/18 09:00 12/01/18 08:39 Flush - Normal Saline IVF 10 ml Q12HR MARTÍN Administration - Exam General Appearance: NAD, awake alert, ill appearing Eye: PERRL, anicteric sclera, scleral icterus ENT: normocephalic atraumatic, no oropharyngeal lesions, moist mucosa, dry oral mucosa Neck: supple, symmetric, no JVD, no thyromegaly, no lymphadenopathy, no carotid bruit, JVD Heart: RRR, no murmur, no gallops, no rubs, normal peripheral pulses, irregular , diminshed peripheral pulses, murmur present, II/IV, III/IV Respiratory: CTAB, no wheezes, no rales, no ronchi, normal chest expansion, no tachypnea, normal percussion, rales, rhonchi, tachypneic, wheezes Gastrointestinal: soft, non-tender, non-distended, normal bowel sounds, no palpable masses, no hepatomegaly, no splenomegaly, no bruit, no guarding, no rigidity, tender to palpation, distended, diminished bowl sounds, voluntary guarding Extremities: no cyanosis, no clubbing, no edema, 1+ LE edema, 2+ LE edema, clubbing Skin: normal turgor, no lesions, no rashes, tenting Neurological: cranial nerve grossly intact, normal sensation to touch, no weakness, no focal deficits, no new deficit, facial droop, hemiplegia, speech deficit, vision deficit Musculoskeletal: normal tone, normal strength, no muscle wasting, generalized weakness, diffuse muscle atrophy Hosp A/P (1) Generalized abdominal pain following cholangiogram Code(s): G89.18 - OTHER ACUTE POSTPROCEDURAL PAIN; R10.84 - GENERALIZED ABDOMINAL PAIN Status: Acute - Plan LFT reviewd, Plan as per the primary. MRCP VS ERCP
[2018-12-01] MEDS: Morphine 4 MG/ML VIAL SLOW IVP PRN (21:08)
[2018-12-01] MEDS: Sodium Chloride 0.9% 1,000 ML IV SCH (21:08)
[2018-12-02] MEDS: D5 1/2 NS w/20 mEq KCL 1,000 ML IV SCH ×3 (01:00→17:39)
[2018-12-02] MEDS: HYDROcodone/Acetaminophen 10/325 mg Tablet PO PRN (01:25)
[2018-12-02] MEDS: Sodium Chloride 0.9% 1,000 ML IV SCH ×3 (01:26→20:43)
[2018-12-02 02:09] LABS: #Eosinphils 0.1 thou/uL (0.0-0.7); #Lymphocytes 1.3 thou/uL (1.20-3.40); #Monocytes 0.8 thou/uL (0.11-0.59); #Neutrophils 7.6 thou/uL (1.40-6.50); %Basophils 0.4 % (0.0-1.0); %Lymphocytes 12.8 % (21.0-51.0); %Monocytes 8.1 % (0.0-10.0); %Neutrophils 77.6 % (42.0-75.0); Hemoglobin 13.8 g/dL (14.0-18.0); Mean Corpuscular HGB CONC 32.8 g/dL (32.0-36.0); Mean Corpuscular Hemoglobin 30.2 pg (27.0-31.0); Mean Corpuscular Volume 92.1 fL (78.0-98.0); Mean Platelet Volume 7.9 fL (7.4-10.4); Platelet Count 257 thou/uL (130-400); RBC Distribution Width 11.9 % (11.5-14.5); Red Blood Cell (RBC) Count 4.56 mill/uL (4.70-6.10); White Blood Cell (WBC) Count 9.8 thou/uL (4.8-10.8)
[2018-12-02 02:35] LABS: ALT (SGPT) 188 U/L (8-55); AST (SGOT) 92 U/L (5-34); Albumin 3.9 g/dL (3.5-5.0); Alkaline Phosphatase 277 U/L (40-110); Anion Gap 16 mmol/L (10-20); BUN (Urea Nitrogen) 7 mg/dL (8.9-20.6); Bilirubin, Total 6.6 mg/dL (0.2-1.2); Calc. Creatinine Clearance 284 mL/min (70-130); Calcium 9.2 mg/dL (7.8-10.44); Carbon Dioxide 21 mmol/L (22-29); Chloride 105 mmol/L (98-107); Estimated GFR-MDRD Greater than 90; Globulin 3.2 g/dL (2.4-3.5); Glucose 96 mg/dL (70-105); Lipase 19 U/L (8-78); Potassium 3.6 mmol/L (3.5-5.1); Protein, Total 7.1 g/dL (6.0-8.3); Sodium 138 mmol/L (136-145)
[2018-12-02] MEDS: Ketorolac Tromethamine 30 MG/ML VIAL IVP SCH ×4 (05:26→23:56)
[2018-12-02] MEDS: Piperacillin/Tazobactam 3.375 GM in Sodium Chloride 0.9% 100 ML IVPB SCH ×4 (05:26→23:56)
[2018-12-02 06:21] LABS: Lactic Acid 0.8 mmol/L (0.5-2.2)
--- NOTE | 2018-12-02 07:58 | MRI ---
EXAM: MRI of the abdomen without contrast COMPARISON: Cholangiogram 11/28/2018 and ERCP 11/28/2018 HISTORY: Elevated LFTs status post cholecystectomy and ERCP TECHNIQUE: Multiplanar multi sequence MR images were taken of the abdomen without IV contrast. [An MR CP was performed.] FINDINGS: Liver: No focal liver lesions or intrahepatic ductal dilatation. Normal signal without dropout on out of phase images. Gallbladder: Removed Common bile duct: Enlarged to 11 mm. There is abrupt tapering of the common bile duct at the ampulla of Vater. No obvious filling defects are seen. Adrenal glands: Unremarkable. Kidneys: No hydronephrosis or focal renal lesions. Spleen: Unremarkable. Pancreas: Unremarkable. Retroperitoneum: No enlarged lymph nodes Bones: No marrow signal abnormality. IMPRESSION: Enlargement of the common bile duct may be a reservoir effect from prior cholecystectomy. No obvious choledocholithiasis is seen.
[2018-12-02] MEDS ORDERED: Iothalamate Meglumine 60% 50 ML VIAL FS ONE ×2 (08:35→10:28)
[2018-12-02] MEDS: Famotidine/PF 20 mg/2ml Vial SLOW IVP SCH ×2 (09:00→20:42)
[2018-12-02] MEDS: Famotidine 20 MG TAB PO SCH ×2 (09:00→20:40)
[2018-12-02] MEDS: Enoxaparin Sodium 40 MG/0.4 ML SYRINGE SC SCH (09:00)
[2018-12-02] MEDS: Aspirin 325 mg Enteric Coated Tablet PO SCH (09:00)
[2018-12-02] MEDS ORDERED: Indomethacin 50 MG SUPP ONE (09:02)
[2018-12-02] MEDS ORDERED: Fentanyl 100 MCG/2 ML VIAL ONE (09:40)
[2018-12-02] MEDS ORDERED: PACU-Morphine 4MG/ML VIAL SLOW IVP PRN (10:25)
[2018-12-02] MEDS ORDERED: Meperidine HCl/PF 25 MG/ML VIAL SLOW IVP PRN (10:25)
[2018-12-02] MEDS ORDERED: Promethazine HCl 25 MG/ML VIAL SLOW IVP PRN (10:25)
[2018-12-02] MEDS ORDERED: Promethazine HCl 25 MG/ML VIAL IM PRN (10:25)
--- NOTE | 2018-12-02 11:20 | PDOC.HOSPP ---
- Subjective Encounter Date: 12/02/18 Encounter Time: 11:19 Subjective: No new complaints - Objective Vital Signs & Weight: Vital Signs (12 hours) Temp Pulse Resp BP Pulse Ox 12/02/18 08:27 98.5 F 73 12 164/89 H 97 12/02/18 03:38 99 F 86 14 166/97 H 96 12/01/18 23:26 98.6 F 76 16 174/113 H 97 Weight Weight 260 lb I&O: 12/01/18 12/02/18 12/03/18 06:59 06:59 06:59 Intake Total 1515 Balance 1515 Result Diagrams: 12/02/18 02:01 12/02/18 02:01 Hospitalist ROS - Medication Medications: Active Medications Generic Name Dose Route Start Last Admin Trade Name Freq PRN Reason Stop Dose Admin Hydrocodone Bitart/Acetaminophen 1 tab 11/28/18 13:07 12/02/18 01:25 [place] 10/325 PO 1 tab Q6H PRN Administration Moderate Pain (4-6) Hydrocodone Bitart/Acetaminophen 2 tab 11/28/18 13:07 11/30/18 23:40 [place] 10/325 PO 2 tab Q6H PRN Administration Severe Pain (7-10) Al Hydroxide/Mg Hydroxide 15 ml 11/28/18 13:07 11/30/18 20:05 Maalox PO 15 ml Q6H PRN Administration Dyspepsia Aspirin 325 mg 12/01/18 09:00 12/02/18 09:00 Ecotrin PO Not Given DAILY MARTÍN Calcium Carbonate 1,000 mg 11/28/18 13:07 11/30/18 20:05 Tums PO 1,000 mg Q4H PRN Administration Dyspepsia Enoxaparin Sodium 40 mg 11/29/18 09:00 12/02/18 09:00 Lovenox SC Not Given 0900 MARTÍN Famotidine 20 mg 11/28/18 21:00 12/02/18 09:00 Pepcid PO Not Given Q12HR MARTÍN Famotidine 20 mg 11/28/18 21:00 12/02/18 09:00 Pepcid SLOW IVP Not Given Q12HR MARTÍN Hydralazine HCl 10 mg 11/28/18 13:07 12/01/18 23:12 Apresoline SLOW IVP 10 mg Q4H PRN Administration SBP > 170 or DBP > 100 Potassium Chloride/Dextrose/Sod Cl 1,000 mls @ 120 mls/hr 11/28/18 13:15 08:55 D5 1/2 Ns W/20 Meq Kcl IV Not Given .Q8H20M MARTÍN Piperacillin Sod/Tazobactam 100 mls @ 200 mls/hr 11/28/18 18:00 12/02/18 05: 26 Sod 3.375 gm/ Sodium Chloride IVPB 100 mls Q6HR MARTÍN Administration Sodium Chloride 1,000 mls @ 125 mls/hr 12/01/18 20:45 12/02/18 01:26 Normal Saline 0.9% IV 1,000 mls .Q8H MARTÍN Administration Ketorolac Tromethamine 30 mg 11/28/18 18:00 12/02/18 05:26 Toradol IVP 12/03/18 18:01 30 mg Q6HR MARTÍN Administration Morphine Sulfate 4 mg 11/28/18 13:07 12/01/18 21:08 Morphine SLOW IVP 4 mg Q2H PRN Administration Moderate Pain (4-6) Ondansetron HCl 4 mg 11/28/18 13:07 12/01/18 19:16 Zofran IVP 4 mg Q6H PRN Administration Nausea/Vomiting Sodium Chloride 10 ml 11/28/18 09:00 12/02/18 09:00 Flush - Normal Saline IVF Not Given Q12HR MARTÍN - Exam General Appearance: NAD, awake alert, ill appearing Eye: PERRL, anicteric sclera, scleral icterus ENT: normocephalic atraumatic, no oropharyngeal lesions, moist mucosa, dry oral mucosa Neck: supple, symmetric, no JVD, no thyromegaly, no lymphadenopathy, no carotid bruit, JVD Heart: RRR, no murmur, no gallops, no rubs, normal peripheral pulses, irregular , diminshed peripheral pulses, murmur present, II/IV, III/IV Respiratory: CTAB, no wheezes, no rales, no ronchi, normal chest expansion, no tachypnea, normal percussion, rales, rhonchi, tachypneic, wheezes Gastrointestinal: soft, non-tender, non-distended, normal bowel sounds, no palpable masses, no hepatomegaly, no splenomegaly, no bruit, no guarding, no rigidity, tender to palpation, distended, diminished bowl sounds, voluntary guarding Extremities: no cyanosis, no clubbing, no edema, 1+ LE edema, 2+ LE edema, clubbing Skin: normal turgor, no lesions, no rashes, tenting Neurological: cranial nerve grossly intact, normal sensation to touch, no weakness, no focal deficits, no new deficit, facial droop, hemiplegia, speech deficit, vision deficit Musculoskeletal: normal tone, normal strength, no muscle wasting, generalized weakness, diffuse muscle atrophy Psychiatric: normal affect, normal behavior, A&O x 3, oriented to person, oriented to place, oriented to time, not oriented, flat affect, somnolent, lethargic Hosp A/P (1) Generalized abdominal pain following cholangiogram Code(s): G89.18 - OTHER ACUTE POSTPROCEDURAL PAIN; R10.84 - GENERALIZED ABDOMINAL PAIN Status: Acute - Plan LFT reviewd, Plan as per the primary. MRCP VS ERCP. MRCP was normal. D/c planning as per primary.
--- NOTE | 2018-12-02 11:42 | RAD ---
EXAM: ERCP HISTORY: Dilated common bile duct and elevated LFTs COMPARISON: 11/28/2018 FINDINGS: Limited intraoperative fluoroscopic views were taken during a an ERCP. The common bile duct is enlarged in caliber. There are multiple filling defects seen on the images pr esented. These may represent true filling defects or air bubbles.. No leakage from the common bile duct. Additionally, a stent is placed within the common bile duct. IMPRESSION: Possible stone removal with stent placement in the common bile duct.
[2018-12-03] MEDS: D5 1/2 NS w/20 mEq KCL 1,000 ML IV SCH (00:57)
[2018-12-03 04:59] LABS: #Eosinphils 0.1 thou/uL (0.0-0.7); #Lymphocytes 1.5 thou/uL (1.20-3.40); #Monocytes 0.7 thou/uL (0.11-0.59); #Neutrophils 5.8 thou/uL (1.40-6.50); %Basophils 0.4 % (0.0-1.0); %Eosinophils 1.6 % (0.0-10.0); %Lymphocytes 18.2 % (21.0-51.0); %Monocytes 8.9 % (0.0-10.0); %Neutrophils 70.9 % (42.0-75.0); Hemoglobin 12.7 g/dL (14.0-18.0); Mean Corpuscular HGB CONC 33.6 g/dL (32.0-36.0); Mean Corpuscular Hemoglobin 31.8 pg (27.0-31.0); Mean Corpuscular Volume 94.9 fL (78.0-98.0); Mean Platelet Volume 8.3 fL (7.4-10.4); Platelet Count 245 thou/uL (130-400); RBC Distribution Width 12.1 % (11.5-14.5); White Blood Cell (WBC) Count 8.2 thou/uL (4.8-10.8)
[2018-12-03] MEDS: Ketorolac Tromethamine 30 MG/ML VIAL IVP SCH (05:18)
[2018-12-03] MEDS: Piperacillin/Tazobactam 3.375 GM in Sodium Chloride 0.9% 100 ML IVPB SCH (05:18)
[2018-12-03] MEDS: Sodium Chloride 0.9% 1,000 ML IV SCH (05:20)
[2018-12-03 05:24] LABS: ALT (SGPT) 198 U/L (8-55); AST (SGOT) 126 U/L (5-34); Albumin 3.6 g/dL (3.5-5.0); Alkaline Phosphatase 263 U/L (40-110); Anion Gap 12 mmol/L (10-20); BUN (Urea Nitrogen) 9 mg/dL (8.9-20.6); Bilirubin, Total 4.3 mg/dL (0.2-1.2); Calc. Creatinine Clearance 257 mL/min (70-130); Calcium 8.8 mg/dL (7.8-10.44); Carbon Dioxide 25 mmol/L (22-29); Chloride 105 mmol/L (98-107); Estimated GFR-MDRD Greater than 90; Globulin 2.9 g/dL (2.4-3.5); Glucose 97 mg/dL (70-105); Lipase 24 U/L (8-78); Potassium 3.5 mmol/L (3.5-5.1); Protein, Total 6.5 g/dL (6.0-8.3); Sodium 138 mmol/L (136-145)
[2018-12-03 08:38] LABS: Mean Corpuscular HGB CONC 33.8 g/dL (32.0-36.0); Mean Corpuscular Hemoglobin 31.5 pg (27.0-31.0); Mean Corpuscular Volume 93.4 fL (78.0-98.0); Mean Platelet Volume 8.3 fL (7.4-10.4); Platelet Count 247 thou/uL (130-400); RBC Distribution Width 12.1 % (11.5-14.5); Red Blood Cell (RBC) Count 4.12 mill/uL (4.70-6.10); White Blood Cell (WBC) Count 8.4 thou/uL (4.8-10.8)
[2018-12-03] MEDS: Aspirin 325 mg Enteric Coated Tablet PO SCH (08:50)
[2018-12-03] MEDS: Famotidine 20 MG TAB PO SCH (08:50)
[2018-12-03] MEDS: Enoxaparin Sodium 40 MG/0.4 ML SYRINGE SC SCH (08:50)
[2018-12-03] MEDS: Famotidine/PF 20 mg/2ml Vial SLOW IVP SCH (08:50)
[2018-12-03] MEDS ORDERED: Ibuprofen 600 MG TAB PO PRN (10:17)
[2018-12-03] MEDS ORDERED: Acetaminophen 500 MG TAB PO PRN (10:17)
--- NOTE | 2018-12-03 10:29 | PRG ---
DATE OF SERVICE: 12/03/2018 SUBJECTIVE: The patient is doing well today after undergoing laparoscopic cholecystectomy. Two ERCPs, the last performed yesterday for retained stone. The patient is doing well today. He is tolerating his diet. He wants to go home. OBJECTIVE: VITAL SIGNS: Temperature 98.4 degrees, pulse 69, blood pressure 144/91. LUNGS: Clear to auscultation. CARDIAC: Regular rate and rhythm. No murmur or gallop. ABDOMEN: Soft, nontender. Surgical wounds look good. EXTREMITIES: Unremarkable. LABORATORY DATA: This morning, his white count is 8, hemoglobin 13. His bilirubin is down from 6.6 to 4.3.. ASSESSMENT AND PLAN: Status post laparoscopic cholecystectomy and 2 ERCPs, now with decreasing LFTs. The patient will be discharged home with diet and activity as tolerated. Follow up with Dr. Caban in 2 to 3 weeks. He will take Tylenol or Advil [id number] for pain. Job ID: [id number]
[2018-12-03 12:08] VITALS: BP 143/82; TEMP 98.6
[2018-12-04] MEDS ORDERED: Lisinopril 10 MG TAB PO SCH (09:00)
--- NOTE | 2018-12-05 15:02 | OP ---
DATE OF PROCEDURE: 12/02/2018 PREPROCEDURE DIAGNOSES: 1. Recent laparoscopic cholecystectomy with endoscopic retrograde cholangiopancreatography at the same anesthetic for abnormal intraoperative cholangiogram with some stones. In that study, a few small stones removed. No other filling defects were seen. 2. Liver enzymes have fluctuated, initially dropping significantly, but then increasing yesterday and again last night with increased pain. 3. Intraoperative cholangiogram films were read as showing no overt stones in the bile duct; however, at the time of surgery, surgeon was concerned about stones in the cystic duct stump. 4. On endoscopic retrograde cholangiopancreatography last time, there was some concern about narrowing the mid common bile duct, but no overt filling defects were seen. 5. With increasing liver function tests, magnetic resonance cholangiopancreatography was performed yesterday, did not see any overt filling defects, read as negative. 6. Today liver function tests went up further, bilirubin is up to 6.6 and ALT up to 277. ANESTHESIA: General endotracheal anesthesia. ANTIBIOTICS: The patient is already on antibiotics indomethacin was not given. POSTPROCEDURE DIAGNOSES: 1. Multiple large stones in the proximal common bile duct and common hepatic duct. 2. Narrowing with shelf in the mid common bile duct. It is unclear if this is adherent stone disease or related to recent surgery. There is no overt malignant appearing stone, balloon was able to come past this area, but not able to be fully inflated. 3. Lithotripsy mechanical form to burst up large stones and remove stones in piecemeal fashion. 4. Balloon was used to remove the remainder of stones. 5. There still seemed to be some narrowing at the mid common bile duct. Again, whether this is edema postsurgical or a primary bile duct disorder, it is unclear, although there was good drainage of the intrahepatic ductal systems with contrast and the common bile duct and the common hepatic duct, still we did not see a good drainage of bile. The decision was therefore made to place a stent. A 10-[place] 7-cm stent was placed to the common hepatic duct. CONCLUSION OF PROCEDURE: There was good drainage of the intrahepatic ducts noted on fluoroscopy. PROCEDURE IN DETAIL: After the patient was informed of the risks, benefits, and possible complications of endoscopy including perforation, bleeding, reaction to medication, aspiration, pancreatitis, he was brought to the endoscopy suite, intubated, placed in prone position carefully. Crabber film was obtained, showing clips in the proper position fluoroscopically anyway. The side-viewing duodenoscope was advanced to the esophagus, stomach, and second and third portion of the duodenum. The ampulla was brought into view. The ampulla appeared normal. The post sphincterotomy site with no overt bleeding. There was some mucosal hemorrhage, but again no bleeding or clot. The common bile duct was easily cannulated with a balloon. Cholangiogram occlusion was performed, revealing concern for some defects in the dilated proximal duct; however, anymore tapered distal duct. Decision was made, these were likely the stones, and again an attempt was made to remove them. Several stones were readily removed with a 12 to 9 mm balloon catheter; however, occlusion cholangiogram still showed the appearance of some filling defects, that appeared to be more like stones and air bubbles and there was still without any flow of bile noted, although plain of contrast noted coming from the ampulla. At this time, we switched over to mechanical Lithotripter, injected with added salt, 2 large irregular stones in the dilated proximal common bile duct and common hepatic duct and these were grasped and then had to be crushed mechanically and removed in piecemeal. Other stones were removed again with the balloon. The smallest basket was used again to try to grab more debris and flush the duct. There was good drainage of contrast endoscopically and radiographically, but not much bile drainage still. The occlusion cholangiogram was performed again and debris was flushed from the ducts. A good picture of the narrowed area of the mid common bile duct was identified and photographed radiographically. The 15-mm balloon was then used to sweep the duct, when we removed more debris, but there was some hang-up of the balloon in the mid common bile duct. It could be pulled past with force. Final occlusion cholangiogram was performed, showing full filling of the opacification of the intrahepatic ducts and then sweeping the duct several times, removing some debris. There should be no filling defects in the duct and eventually all this drained out with good drainage fluoroscopically. Again, there was much bile drainage. Decision was made to go ahead and place a 10-[place] 7 cm stent across the common bile duct, especially in that portion, what appeared to be narrow, edema here, so there is not any edema causing obstruction. This could be removed in 6-8 weeks. The scope was removed. The patient was brought to recovery room in stable condition. Job ID: [id number]
--- NOTE | 2018-12-06 05:14 | PQF ---
LICHA KENNEDY JOHN A JR MD [id number] [place] [id number] CLINICAL DOCUMENTATION CLARIFICATION FORM: POST DISCHARGE Addendum to original discharge summary date: ____ Late entry note date: __ DATE: 12/06/18 ATTN:Estuardo Caban Please exercise your independent, professional judgment in responding to the clarification form. Clinical indicators are provided on the bottom of this form for your review Based on your clinical judgment, can you please specify the known or suspected condition being treated, evaluated or monitored? Please check appropriate box(s): [ ] Atelectasis clinically significant [ ] Atelectasis not clinically significant [ ] Other diagnosis [ ] Unable to determine In addition, please specify: Present on Admission (POA): [ ] Yes [ ] No [ ] Unable to determine For continuity of documentation, please document condition throughout progress notes and discharge summary. Thank You. CLINICAL INDICATORS - SIGNS / SYMPTOMS / LABS Chest Xray 11/30 "Patchy atelectasis or infiltrates in the left lung base" Chest Xray 11/30 "Mild elevated right hemidiaphragm" Chest Xray 11/30 "Small effusion cannot be excluded" ED Notes 11/28 "patient presents for evaluation of chest pain" PN 11/29 "Respiratory:clear to auscultation" Vital signs: 11/30=24 12/01=22 10=22 RISK FACTORS ED Notes 11/28-Smoker PN 11/29-Obese PN 11/29-s/p Lap cholecystectomy PN 11/29-s/p ERCP TREATMENTS: Collected 11/30-Chest Xray MAR 11/28-IVF (This form is maintained as a part of the permanent medical record) 2014 [employer]. All Rights Reserved [email or web address] [not provided] MTDD
--- NOTE | 2018-12-06 05:16 | PQF ---
LICHA KENNEDY JOHN A JR MD [id number] [place] [address] [id number] CLINICAL DOCUMENTATION CLARIFICATION FORM: POST DISCHARGE Addendum to original discharge summary date: ____ Late entry note date: __ DATE: 12/06/18 ATTN:Estuardo Caban Please exercise your independent, professional judgment in responding to the clarification form. Clinical indicators are provided on the bottom of this form for your review Based on your clinical judgment, can you please specify the known or suspected condition being treated, evaluated or monitored? Please check appropriate box(s): [ ] Atelectasis clinically significant [ ] Atelectasis not clinically significant [ ] Other diagnosis [ ] Unable to determine In addition, please specify: Present on Admission (POA): [ ] Yes [ ] No [ ] Unable to determine For continuity of documentation, please document condition throughout progress notes and discharge summary. Thank You. CLINICAL INDICATORS - SIGNS / SYMPTOMS / LABS Chest Xray 11/30 "Patchy atelectasis or infiltrates in the left lung base" Chest Xray 11/30 "Mild elevated right hemidiaphragm" Chest Xray 11/30 "Small effusion cannot be excluded" ED Notes 11/28 "patient presents for evaluation of chest pain" PN 11/29 "Respiratory:clear to auscultation" Vital signs: 11/30=24 12/01=22 10=22 RISK FACTORS ED Notes 11/28-Smoker PN 11/29-Obese PN 11/29-s/p Lap cholecystectomy PN 11/29-s/p ERCP TREATMENTS: Collected 11/30-Chest Xray MAR 11/28-IVF (This form is maintained as a part of the permanent medical record) 2014 [employer]. All Rights Reserved [email or web address] [not provided] MTDD
--- NOTE | 2018-12-06 10:16 | EKG ---
Test Reason : STAT Blood Pressure : / mmHG Vent. Rate : 096 BPM Atrial Rate : 096 BPM P-R Int : 138 ms QRS Dur : 094 ms QT Int : 330 ms P-R-T Axes : 033 030 016 degrees QTc Int : 416 ms Normal sinus rhythm Normal ECG When compared with ECG of 27-NOV-2018 22:01, (Unconfirmed) No significant change was found Confirmed by SUZI MONTANEZ MD ([id number]) on 12/06/2018 10:16:05 AM Referred By: Confirmed By:SUZI MONTANEZ MD
== END 2018-12-03 13:00 | disposition home or self-care (01) | DRG 419 ==
LOC: ERS 21:51 → SURG A 11-28 02:45 → OBSVTOIN 11-28 13:08
PROVIDERS: ADMIT Surgery; ATTEND Surgery
PROC: 0FT44ZZ Resection of Gallbladder, Percutaneous Endoscopic Approach (ICD-10-PCS; principal; 2018-11-28)
PROC: BF141ZZ Fluoroscopy of Gallbladder, Bile Ducts and Pancreatic Ducts using Low Osmolar Contrast (ICD-10-PCS; 2018-11-28)
PROC: 0FC98ZZ Extirpation of Matter from Common Bile Duct, Via Natural or Artificial Opening Endoscopic (ICD-10-PCS; 2018-11-28)
PROC: BF111ZZ Fluoroscopy of Biliary and Pancreatic Ducts using Low Osmolar Contrast (ICD-10-PCS; 2018-11-28)
PROC: 3E02340 Introduction of Influenza Vaccine into Muscle, Percutaneous Approach (ICD-10-PCS; 2018-11-28)
PROC: 3E0234Z Introduction of Serum, Toxoid and Vaccine into Muscle, Percutaneous Approach (ICD-10-PCS; 2018-11-28)
PROC: 0FC98ZZ Extirpation of Matter from Common Bile Duct, Via Natural or Artificial Opening Endoscopic (ICD-10-PCS; 2018-12-02)
PROC: 0F798DZ Dilation of Common Bile Duct with Intraluminal Device, Via Natural or Artificial Opening Endoscopic (ICD-10-PCS; 2018-12-02)
DX: K80.42 Calculus of bile duct with acute cholecystitis without obstruction (principal); I10 Essential (primary) hypertension; Z23 Encounter for immunization; E66.9 Obesity, unspecified; F17.210 Nicotine dependence, cigarettes, uncomplicated; G89.18 Other acute postprocedural pain; Z79.899 Other long term (current) drug therapy; Z68.36 Body mass index [BMI] 36.0-36.9, adult
CPT/HCPCS: 36415; 47532; 71045; 74181; 74330; 76705; 80048; 80053; 80076; 81003; 81015; 83605; 83690; 83735; 83880; 84145; 84484; 85025; 87070; 87205; 88304; 90471; 90686; 93005; 93010; 96365; 96375; C1769; G0008; J0360; J1100; J1610; J1650; J1885; J2001; J2250; J2270; J2405; J2543; J2704; J3010; J3490; S0028

== ENCOUNTER 2019-01-23 08:38 | Day surgery (SDC) | payer OTHER ==
[2019-01-20 11:46] VITALS: BMI 38.4
[2019-01-23] MEDS ORDERED: diphenhydrAMINE 50 MG/ML VIAL ONE (09:21)
[2019-01-23] MEDS ORDERED: Ondansetron PF 4 MG/2 ML Vial ONE (09:21)
[2019-01-23] MEDS ORDERED: Labetalol HCl 100 MG/20 ML VIAL ONE (09:21)
[2019-01-23] MEDS ORDERED: Rocuronium Bromide 10 MG/ML (10ML VIAL) ONE (09:21)
[2019-01-23] MEDS ORDERED: Glycopyrrolate 0.2 MG/ML 5 ML SYRINGE ONE (09:21)
[2019-01-23] MEDS ORDERED: Dexamethasone 20 MG/5 ML VIAL ONE (09:21)
[2019-01-23] MEDS ORDERED: PROPOFOL 200 MG/20 ML VIAL ONE (09:21)
[2019-01-23] MEDS ORDERED: Lidocaine 1% PF 5 ML VIAL ONE (09:21)
[2019-01-23] MEDS ORDERED: Indomethacin 50 MG SUPP ONE (10:55)
[2019-01-23] MEDS ORDERED: Iothalamate Meglumine 60% 50 ML VIAL FS ONE (10:55)
[2019-01-23] MEDS ORDERED: SUGAMMADEX SODIUM 200 MG/2 ML VIAL ONE (11:00)
[2019-01-23] MEDS ORDERED: Fentanyl 100 MCG/2 ML VIAL ONE (11:00)
[2019-01-23] MEDS ORDERED: Racepinephrine 2.25% 0.5 ML NEB ONE (11:51)
[2019-01-23] MEDS ORDERED: SUGAMMADEX SODIUM 500 MG/5 ML VIAL ONE (11:53)
[2019-01-23] MEDS ORDERED: Sodium Chloride For Inhalation 0.9% 3 ML NEB ONE (11:53)
--- NOTE | 2019-01-23 12:09 | RAD ---
XR ERCP PROVIDED CLINICAL HISTORY: Biliary stent removal. COMPARISON: None FINDINGS/IMPRESSION: A single intraoperative fluoroscopic image of the right upper quadrant is submitted. Image demonstrat es an endo stent in place overlying the expected location of the common duct. Endoscope is noted in place. There is suggestion of surgical clips overlying the right upper quadrant. Correlation with int raoperative findings is recommended. Transcribed Date/Time: 01/23/2019 12:08 PM
--- NOTE | 2019-01-23 15:57 | OP ---
DATE OF PROCEDURE: 01/23/2019 PREPROCEDURE DIAGNOSIS: History of choledocholithiasis with stent placement with ERCP on 12/02/2018. ANESTHESIA: General endotracheal anesthesia. POSTPROCEDURE DIAGNOSES: 1. No further filling defects in the common bile duct. 2. Slight narrowing in the mid common bile duct. Radiographic documentation obtained. The 12-mm balloon does come through this area, though with some resistance, likely scarring. 3. There were concerns at the time of his laparoscopic cholecystectomy, stent in the cystic duct stump. 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 4. Full emptying of biliary tree at the termination of procedure, documented fluoroscopically. RECOMMENDATIONS: 1. Follow up in my office in 1 month. 2. Repeat LFTs. If the LFTs do not return completely to normal, we will consider referring for spyglass to evaluate the abnormality in the mid common bile duct. PROCEDURE IN DETAIL: After the patient was informed of the risks, benefits, and possible complications of endoscopy including perforation, bleeding, reaction to medication, and aspiration, informed consent was obtained. The patient was brought to the endoscopy suite, where he was sedated in gradual fashion. He was intubated and placed in prone position. A rotary swaging machine operator film was obtained, showing the stent in the common bile duct in place. The side-viewing duodenoscope was advanced to the esophagus, stomach, and second and third portions of the duodenum with the ampulla was brought into view. The stent was grasped and removed through the bite block and oropharynx. The side-viewing scope was then readvanced to the duodenum and cannulation obtained with a 12-mm balloon. The cannulation in the proximal bile duct was performed ultimately with assistance of a guidewire. Cholangiogram revealed no overt filling defects. A little bit of sludge in the distal duct, it was removed. On full expansion of the common bile duct, there was no evidence of leak. The jackelyn could be seen in the area of the common hepatic duct. The balloon could be brought through the entire bile duct with some resistance in the mid duct. There seems to be some stricture and narrowing in this area, but there was passage of contrast beyond it fluoroscopically once the balloon was let down. The entire biliary tree showed no further filling defects. There was good drainage of the biliary tree endoscopically and radiographically with complete emptying. Fluoroscopic images were obtained. This scope was removed. The patient tolerated the procedure well. There were no complications. Job ID: [id number]
== END 2019-01-23 15:30 | disposition home or self-care (01) ==
LOC: SDC 08:38
PROVIDERS: ATTEND Internal Medicine Gastroenterology
PROC: 0FPB8DZ Removal of Intraluminal Device from Hepatobiliary Duct, Via Natural or Artificial Opening Endoscopic (ICD-10-PCS; principal; 2019-01-23)
DX: Z46.59 Encounter for fitting and adjustment of other gastrointestinal appliance and device (principal); I10 Essential (primary) hypertension; Z79.899 Other long term (current) drug therapy
CPT/HCPCS: 74330; J1100; J1200; J2001; J2405; J2704; J3010